=== PATIENT | female | born 1990 | race Caucasian/White ===

== ENCOUNTER → 2020-08-30 | Outpatient (CLI) | payer OTHER ==
[~2020-08-30] MED LIST: AUGMENTIN 875 M1 TAB PO; PEPCID20 MG PO; ZOFRAN ODT8 MG PO; ZOFRAN4 MG PO
== END | disposition home or self-care (01) ==
LOC: COVID19 15:52
PROVIDERS: ATTEND Family Medicine
DX: U07.1 COVID-19 (principal)

== ENCOUNTER 2023-10-07 22:08 | Emergency (ER) | payer SELFPAY ==
[~2023-10-07] VITALS: Wt 65.8 kg
== END 2023-10-07 23:41 | disposition home or self-care (01) ==
LOC: ED 22:08
DX: S93.401A Sprain of unspecified ligament of right ankle, initial encounter (principal); W51.XXXA Accidental striking against or bumped into by another person, initial encounter; Y93.89 Activity, other specified; Y92.89 Other specified places as the place of occurrence of the external cause; Y99.8 Other external cause status